=== PATIENT | female | born 1935 | race Caucasian/White ===

== ENCOUNTER 2021-06-30 10:11 | Inpatient (IN) ==
[2021-06-30] MEDS ORDERED: Aspirin 81 MG TAB.CHEW PO ONE (10:20)
[2021-06-30] MEDS: Nitroglycerin 0.4 MG TAB.SUBL SL PRN ×2 (10:34→11:04)
[2021-06-30] MEDS ORDERED: *HR* Heparin 5,000 UNIT/ML VIAL IVP PRN ×2 (10:46)
[2021-06-30] MEDS ORDERED: *HR* Ticagrelor 90 MG TABLET PO ONE (10:46)
[2021-06-30] MEDS ORDERED: *HR* Heparin 5,000 UNIT/ML VIAL IVP ONE (10:46)
[2021-06-30 10:57] LABS: Basophils % 0.3 %; Eosinophils % 0.1 %; Hematocrit 35.7 % (35.3-44.9); Hemoglobin 11.8 g/dL (11.5-15.4); Immature Granulocytes % 0.3 % (0-4); Lymphocytes # 1.5 K/mcL (0.6-4.6); Lymphocytes % 16.2 %; Mean Corpuscular HGB Conc 33.1 g/dL (31.6-35.5); Mean Corpuscular Hemoglobin 29.6 pg (28.0-33.3); Mean Corpuscular Volume 89.5 fL (83.0-100.0); Monocytes # 0.7 K/mcL (0.0-1.3); Monocytes % 7.8 %; Neutrophils # 6.9 K/mcL (1.6-8.9); Platelet Count 253 K/mcL (140-400); Red Blood Count 3.99 M/mcL (3.82-4.97); Red Cell Distribution Width 13.9 % (11.5-14.5); Segmented Neutrophils % 75.3 %; White Blood Count 9.2 K/mcL (4.3-11.1)
[2021-06-30] MEDS ORDERED: Heparin 25,000UNIT/250ML 1/2NS 25,000 UNIT/250 ML IV.SOLN IVC SCH (11:00)
[2021-06-30] MEDS ORDERED: ISOVUE-370 200 ML INFUS..BTL ONE (11:01)
[2021-06-30] MEDS ORDERED: Nitroglycerin 1,000 MCG/5 ML VIAL IV ONE (11:01)
[2021-06-30] MEDS ORDERED: Heparin 1,000 UNITS/500 mL 500 ML ONE (11:01)
[2021-06-30] MEDS ORDERED: 0.9 % Sodium Chloride 1,000 ML ONE (11:01)
[2021-06-30] MEDS ORDERED: *HR* Heparin 10,000 UNIT/10 ML VIAL ONE ×2 (11:01→11:07)
[2021-06-30 11:05] LABS: INR 1.1; Prothrombin Time 12.7 Seconds (9.4-12.1)
[2021-06-30 11:07] LABS: Activated Partial Thrombo Time 25.4 Seconds (26.0-36.0)
[2021-06-30 11:21] LABS: Alanine Aminotransferase 12 Units/L (7-52); Albumin 3.7 g/dL (3.5-5.7); Albumin/Globulin Ratio 1.2 (1.1-2.2); Alkaline Phosphatase 57 Units/L (34-104); Aspartate Amino Transferase 48 Units/L (13-39); BUN/Creatinine Ratio 15 (6-26); Bilirubin,Direct 0.1 mg/dL (0.0-0.2); Bilirubin,Indirect 0.5 mg/dL (0.0-1.0); Bilirubin,Total 0.6 mg/dL (0.3-1.0); Blood Urea Nitrogen 9 mg/dL (8-23); Calcium 9.1 mg/dL (8.6-10.3); Carbon Dioxide 28 mEq/L (23-29); Chloride 92 mEq/L (98-107); Glucose 115 mg/dL (70-105); Lipase 9 Units/L (11-82); Magnesium 1.6 mg/dL (1.6-2.6); Osmolality,Calculated 270 (280-300); Potassium 3.2 mEq/L (3.5-5.1); Sodium 130 mEq/L (136-145); Total Protein 6.7 g/dL (6.4-8.9); Troponin I 4.22 ng/mL (< 0.04); eGFR For African Americans > 60 (> 60); eGFR For Non-African Americans > 60 (> 60)
[2021-06-30] MEDS ORDERED: *HR* FentaNYL (PF) 100 MCG/2 ML VIAL ONE (12:31)
[2021-06-30] MEDS ORDERED: *HR* Midazolam HCl 2 MG/2 ML VIAL ONE (12:32)
[2021-06-30] MEDS: Acetaminophen 325 MG TABLET PO PRN (17:36)
[2021-06-30] MEDS: rOPINIRole 1 MG TABLET PO SCH (20:17)
[2021-06-30] MEDS: Gabapentin 300 MG CAPSULE PO SCH (20:17)
[2021-07-01] MEDS: *HR* HYDROcodone/Acet 5/325 mg TABLET PO PRN (01:55)
[2021-07-01 05:23] LABS: Hemoglobin 11.1 g/dL (11.5-15.4)
[2021-07-01 05:40] LABS: BUN/Creatinine Ratio 19 (6-26); Blood Urea Nitrogen 13 mg/dL (8-23); eGFR For African Americans > 60 (> 60); eGFR For Non-African Americans > 60 (> 60)
[2021-07-01] MEDS ORDERED: Perflutren Lipid Microsphere 1.3 ML in 0.9 % Sodium Chloride 8.7 ML IVP PRN (08:44)
[2021-07-01] MEDS: Aspirin Enteric Coated 81 MG Tablet PO SCH (09:27)
[2021-07-01] MEDS: Gabapentin 300 MG CAPSULE PO SCH ×4 (09:27→20:46)
[2021-07-01] MEDS ORDERED: *HR* Digoxin 0.5 MG/2 ML AMPUL IVP ONE (11:58)
[2021-07-01] MEDS: *HR* Enoxaparin 80 MG/0.8 ML SYRINGE SQ SCH ×2 (12:16→21:58)
[2021-07-01] MEDS ORDERED: Amiodarone Premix 150 MG/100 ML BAG IVPB ONE ×2 (14:43→20:15)
[2021-07-01] MEDS: Acetaminophen 325 MG TABLET PO PRN (14:46)
[2021-07-01] MEDS ORDERED: *HR* Metoprolol 5 MG/5 ML VIAL IVP ONE (16:52)
[2021-07-01] MEDS ORDERED: *HR* Digoxin 0.5 MG/2 ML AMPUL IVP SCH (18:00)
[2021-07-01] MEDS ORDERED: Amiodarone Premix 360 MG/200 ML BAG IVC ONE (20:30)
[2021-07-01] MEDS: carvediloL 6.25 MG TABLET PO SCH (20:46)
[2021-07-01] MEDS: rOPINIRole 1 MG TABLET PO SCH (21:58)
[2021-07-02 00:05] LABS: Bilirubin,Urine Negative (Negative); Blood,Urine Moderate (Negative); Clarity,Urine Clear (Clear); Color,Urine Light-Yellow (Yellow); Glucose,Urine (UA) Normal (Normal); Ketones,Urine Negative (Negative); Leukocyte Esterase,Urine Large (Negative); Mucus,Urine Few per lpf (None-Few); Nitrite,Urine Negative (Negative); PH,Urine 6.5 pH Units (5.0-8.0); Protein,Urine 50 mg/dL (Neg-Trace); RBC,Urine 50-100 per hpf (0-3); Specific Gravity,Urine 1.024 (1.010-1.025); Squamous Epithelial Cell,Urine Few per hpf (None-Few); WBC,Urine 50-100 per hpf (0-3)
[2021-07-02] MEDS ORDERED: Amiodarone Premix 360 MG/200 ML BAG IVC SCH (02:30)
[2021-07-02] MEDS: *HR* Enoxaparin 80 MG/0.8 ML SYRINGE SQ SCH (05:32)
[2021-07-02] MEDS ORDERED: Metoprolol XL (24 HR) Succ 25 MG TAB.ER.24H PO SCH (09:15)
[2021-07-02] MEDS: Gabapentin 300 MG CAPSULE PO SCH ×4 (09:21→19:36)
[2021-07-02] MEDS: Aspirin Enteric Coated 81 MG Tablet PO SCH (09:22)
[2021-07-02] MEDS ORDERED: Potassium Chloride Elixir 20 MEQ/15 ML UDC PO ONE (12:33)
[2021-07-02] MEDS ORDERED: Furosemide 20 MG/2 ML VIAL IVP ONE (12:42)
[2021-07-02] MEDS: Acetaminophen 325 MG TABLET PO PRN (16:50)
[2021-07-02] MEDS: Metoprolol XL (24 HR) Succ 25 MG TAB.ER.24H PO SCH (19:36)
[2021-07-02] MEDS: Apixaban 5 MG TABLET PO SCH (19:36)
[2021-07-02] MEDS: rOPINIRole 1 MG TABLET PO SCH (19:36)
[2021-07-03 05:29] LABS: Basophils % 0.3 %; Eosinophils # 0.1 K/mcL (0.0-0.6); Eosinophils % 0.8 %; Hematocrit 34.7 % (35.3-44.9); Hemoglobin 11.1 g/dL (11.5-15.4); Immature Granulocytes % 0.7 % (0-4); Lymphocytes # 1.8 K/mcL (0.6-4.6); Lymphocytes % 24.2 %; Mean Corpuscular Hemoglobin 29.1 pg (28.0-33.3); Mean Corpuscular Volume 91.1 fL (83.0-100.0); Monocytes # 0.9 K/mcL (0.0-1.3); Monocytes % 11.6 %; Neutrophils # 4.6 K/mcL (1.6-8.9); Platelet Count 227 K/mcL (140-400); Red Blood Count 3.81 M/mcL (3.82-4.97); Red Cell Distribution Width 14.6 % (11.5-14.5); Segmented Neutrophils % 62.4 %; White Blood Count 7.3 K/mcL (4.3-11.1)
[2021-07-03 05:44] LABS: BUN/Creatinine Ratio 30 (6-26); Blood Urea Nitrogen 19 mg/dL (8-23); Calcium 8.8 mg/dL (8.6-10.3); Carbon Dioxide 26 mEq/L (23-29); Chloride 100 mEq/L (98-107); Glucose 102 mg/dL (70-105); Osmolality,Calculated 280 (280-300); Potassium 3.6 mEq/L (3.5-5.1); Sodium 134 mEq/L (136-145); eGFR For African Americans > 60 (> 60); eGFR For Non-African Americans > 60 (> 60)
[2021-07-03] MEDS: *HR* HYDROcodone/Acet 5/325 mg TABLET PO PRN (06:10)
[2021-07-03] MEDS: Apixaban 5 MG TABLET PO SCH ×2 (07:19→19:43)
[2021-07-03] MEDS: Metoprolol XL (24 HR) Succ 25 MG TAB.ER.24H PO SCH ×2 (07:19→19:43)
[2021-07-03] MEDS: Gabapentin 300 MG CAPSULE PO SCH ×4 (07:19→19:43)
[2021-07-03] MEDS: rOPINIRole 1 MG TABLET PO SCH (19:43)
[2021-07-03] MEDS: Ondansetron 4 MG/2 ML VIAL IVP PRN (21:32)
[2021-07-04] MEDS: Apixaban 5 MG TABLET PO SCH ×2 (09:22→20:29)
[2021-07-04] MEDS: Ondansetron 4 MG/2 ML VIAL IVP PRN (09:22)
[2021-07-04] MEDS: Metoprolol XL (24 HR) Succ 25 MG TAB.ER.24H PO SCH ×2 (09:22→20:29)
[2021-07-04] MEDS: Gabapentin 300 MG CAPSULE PO SCH ×4 (09:22→20:27)
[2021-07-04] MEDS ORDERED: *HR* HYDROcodone/Acet 5/325 mg TABLET PO PRN (15:21)
[2021-07-04] MEDS ORDERED: Ondansetron 4 MG/2 ML VIAL IVP PRN (15:21)
[2021-07-04] MEDS ORDERED: Nitroglycerin 0.4 MG TAB.SUBL SL PRN (15:21)
[2021-07-04] MEDS: rOPINIRole 1 MG TABLET PO SCH (20:26)
[2021-07-04] MEDS: Acetaminophen 325 MG TABLET PO PRN (20:28)
[2021-07-05] MEDS: carvediloL 6.25 MG TABLET PO SCH (08:09)
[2021-07-05] MEDS: Gabapentin 300 MG CAPSULE PO SCH ×4 (09:56→21:33)
[2021-07-05] MEDS: Apixaban 5 MG TABLET PO SCH ×2 (09:56→21:33)
[2021-07-05] MEDS: Metoprolol XL (24 HR) Succ 25 MG TAB.ER.24H PO SCH ×2 (09:56→21:33)
[2021-07-05] MEDS: rOPINIRole 1 MG TABLET PO SCH (21:33)
[2021-07-05] MEDS: Acetaminophen 325 MG TABLET PO PRN (21:34)
[2021-07-06] MEDS: Gabapentin 300 MG CAPSULE PO SCH ×4 (08:08→20:01)
[2021-07-06] MEDS: Apixaban 5 MG TABLET PO SCH ×2 (08:09→20:01)
[2021-07-06] MEDS: Metoprolol XL (24 HR) Succ 25 MG TAB.ER.24H PO SCH ×2 (08:09→20:01)
[2021-07-06] MEDS: Acetaminophen 325 MG TABLET PO PRN (13:25)
[2021-07-06] MEDS: rOPINIRole 1 MG TABLET PO SCH (20:01)
[2021-07-07 07:12] VITALS: TEMP 97.8
[2021-07-07] MEDS: Metoprolol XL (24 HR) Succ 25 MG TAB.ER.24H PO SCH (08:38)
[2021-07-07] MEDS: Gabapentin 300 MG CAPSULE PO SCH ×2 (08:39→11:24)
[2021-07-07] MEDS: Apixaban 5 MG TABLET PO SCH (08:39)
[2021-07-07 10:41] VITALS: BP 103/65; PULSE 77; O2SAT 95
[2021-07-07] MEDS: Acetaminophen 325 MG TABLET PO PRN (12:51)
== END 2021-07-07 16:09 | DRG 247 ==
LOC: EMEROOARM 10:11 → 3BNU 10:11 → 2NNU 07-01 20:02 → 3BNU 07-05 21:05
PROVIDERS: ADMIT Internal Medicine Cardiovascular Disease; ATTEND Internal Medicine Cardiovascular Disease

== ENCOUNTER 2021-12-28 13:40 | Observation (INO) ==
[2021-12-28] MEDS ORDERED: Acetaminophen 325 MG TABLET PO PRN (19:55)
[2021-12-28] MEDS ORDERED: Naloxone 0.4 MG/ML INJ IVP PRN (19:55)
[2021-12-28] MEDS ORDERED: Melatonin 3 MG TABLET PO PRN (19:55)
[2021-12-28] MEDS ORDERED: Ondansetron ODT 4 MG TAB.RAPDIS SL PRN (19:55)
[2021-12-28] MEDS ORDERED: *HR* OxyCODONE Immed Rel 5 MG TABLET PO PRN (19:55)
[2021-12-28] MEDS ORDERED: Perflutren Lipid Microsphere 1.3 ML in 0.9 % Sodium Chloride 8.7 ML IVP PRN (19:59)
[2021-12-28] MEDS ORDERED: DilTIAZem 50 MG/50 ML IV.SOLN IVC SCH (20:15)
[2021-12-28] MEDS ORDERED: Metoprolol XL (24 HR) Succ 25 MG TAB.ER.24H PO SCH (21:00)
[2021-12-28] MEDS: Apixaban 5 MG TABLET PO SCH (21:04)
[2021-12-28] MEDS: rOPINIRole 1 MG TABLET PO SCH (21:04)
[2021-12-28] MEDS: Gabapentin 300 MG CAPSULE PO SCH (23:14)
[2021-12-29] MEDS: Metoprolol XL (24 HR) Succ 25 MG TAB.ER.24H PO SCH ×3 (00:02→21:29)
[2021-12-29 02:29] LABS: Basophils % 0.3 %; Eosinophils % 0.4 %; Hematocrit 31.4 % (35.3-44.9); Immature Granulocytes % 0.4 % (0-4); Lymphocytes # 1.7 K/mcL (0.6-4.6); Lymphocytes % 24.9 %; Mean Corpuscular HGB Conc 31.8 g/dL (31.6-35.5); Mean Corpuscular Hemoglobin 26.3 pg (28.0-33.3); Mean Corpuscular Volume 82.6 fL (83.0-100.0); Mean Platelet Volume 9.5 fL (9.4-12.4); Monocytes # 0.8 K/mcL (0.0-1.3); Monocytes % 11.9 %; Neutrophils # 4.3 K/mcL (1.6-8.9); Platelet Count 261 K/mcL (140-400); Red Cell Distribution Width 16.9 % (11.5-14.5); Segmented Neutrophils % 62.1 %
[2021-12-29 02:36] LABS: Alanine Aminotransferase 8 Units/L (7-52); Albumin 3.6 g/dL (3.5-5.7); Albumin/Globulin Ratio 1.4 (1.1-2.2); Alkaline Phosphatase 59 Units/L (34-104); Aspartate Amino Transferase 12 Units/L (13-39); BUN/Creatinine Ratio 24 (6-26); Bilirubin,Total 0.4 mg/dL (0.3-1.0); Blood Urea Nitrogen 16 mg/dL (8-23); Calcium 9.4 mg/dL (8.6-10.3); Carbon Dioxide 25 mEq/L (23-29); Chloride 99 mEq/L (98-107); Cholesterol 243 mg/dL (< 200); Globulin 2.6 g/dL (2.4-3.5); Glucose 109 mg/dL (70-105); Magnesium 1.7 mg/dL (1.6-2.6); Osmolality,Calculated 282 (280-300); Phosphorous 3.6 mg/dL (2.7-4.5); Potassium 3.5 mEq/L (3.5-5.1); Sodium 135 mEq/L (136-145); Total Protein 6.2 g/dL (6.4-8.9); Triglycerides 225 mg/dL (< 150); eGFR For African Americans > 60 (> 60); eGFR For Non-African Americans > 60 (> 60)
[2021-12-29 02:48] LABS: Thyroid Stimulating Hormone 4.502 mcIU/mL (0.340-5.600)
[2021-12-29 02:49] LABS: HDL Cholesterol 49 mg/dL (40-59); LDL Cholesterol,Calculated 149 mg/dL (< 100)
[2021-12-29 03:11] LABS: Estimated Average Glucose 137 mg/dl; Hemoglobin A1C 6.4 %
[2021-12-29] MEDS: *HR* HYDROcodone/Acet 5/325 mg TABLET PO PRN ×2 (03:28→19:05)
[2021-12-29] MEDS ORDERED: Aspirin 81 MG TAB.CHEW PO SCH (09:00)
[2021-12-29] MEDS: Apixaban 5 MG TABLET PO SCH (09:57)
[2021-12-29] MEDS: rOPINIRole 1 MG TABLET PO SCH ×2 (13:01→21:29)
[2021-12-29] MEDS: *HR* Amiodarone 200 MG TABLET PO SCH (13:01)
[2021-12-29] MEDS: Gabapentin 300 MG CAPSULE PO SCH (21:29)
[2021-12-29] MEDS: Apixaban 2.5 MG TABLET PO SCH (21:29)
[2021-12-30 07:25] LABS: Basophils % 0.6 %; Eosinophils # 0.1 K/mcL (0.0-0.6); Eosinophils % 1.3 %; Hematocrit 33.4 % (35.3-44.9); Hemoglobin 10.5 g/dL (11.5-15.4); Immature Granulocytes % 0.4 % (0-4); Lymphocytes # 1.6 K/mcL (0.6-4.6); Lymphocytes % 28.6 %; Mean Corpuscular HGB Conc 31.4 g/dL (31.6-35.5); Mean Corpuscular Hemoglobin 26.3 pg (28.0-33.3); Mean Corpuscular Volume 83.5 fL (83.0-100.0); Monocytes # 0.6 K/mcL (0.0-1.3); Monocytes % 10.3 %; Neutrophils # 3.2 K/mcL (1.6-8.9); Platelet Count 273 K/mcL (140-400); Red Cell Distribution Width 17.1 % (11.5-14.5); Segmented Neutrophils % 58.8 %; White Blood Count 5.5 K/mcL (4.3-11.1)
[2021-12-30 08:14] LABS: BUN/Creatinine Ratio 26 (6-26); Blood Urea Nitrogen 20 mg/dL (8-23); Carbon Dioxide 29 mEq/L (23-29); Chloride 99 mEq/L (98-107); Glucose 95 mg/dL (70-105); Magnesium 1.9 mg/dL (1.6-2.6); Osmolality,Calculated 284 (280-300); Potassium 4.2 mEq/L (3.5-5.1); Sodium 136 mEq/L (136-145); eGFR For African Americans > 60 (> 60); eGFR For Non-African Americans > 60 (> 60)
[2021-12-30] MEDS ORDERED: Cholecalciferol (D-3) 1,000 UNIT (25MCG) TABLET PO SCH (09:00)
[2021-12-30] MEDS ORDERED: Multivit/Ca/Min/Fe/FA 1 TAB TABLET PO SCH (09:00)
[2021-12-30] MEDS ORDERED: Pyridoxine (B-6) 50 MG TABLET PO SCH (09:00)
[2021-12-30] MEDS ORDERED: Cyanocobalamin (B-12) 1,000 MCG TABLET PO SCH (09:00)
[2021-12-30] MEDS ORDERED: hydroCHLOROthiazide 25 MG TABLET PO SCH (09:00)
[2021-12-30] MEDS ORDERED: Ascorbic Acid 500 MG TABLET PO SCH (09:00)
[2021-12-30] MEDS: Metoprolol XL (24 HR) Succ 25 MG TAB.ER.24H PO SCH (09:07)
[2021-12-30] MEDS: Apixaban 2.5 MG TABLET PO SCH (09:08)
[2021-12-30] MEDS: *HR* Amiodarone 200 MG TABLET PO SCH (09:08)
[2021-12-30 11:19] VITALS: BP 153/77; PULSE 77; TEMP 98.5; O2SAT 98
[2021-12-30] MEDS: rOPINIRole 1 MG TABLET PO SCH (12:25)
== END 2021-12-30 14:35 | disposition home or self-care (01) ==
LOC: 2ANU → SUATTDRO 19:29
PROVIDERS: ADMIT Internal Medicine; ATTEND Family Medicine

== ENCOUNTER 2022-03-04 09:24 | Observation (INO) ==
[2022-03-04] MEDS ORDERED: 0.9 % Sodium Chloride 1,000 ML ONE ×2 (09:52→10:40)
[2022-03-04] MEDS ORDERED: *HR* Midazolam HCl 2 MG/2 ML VIAL ONE (10:39)
[2022-03-04] MEDS ORDERED: *HR* FentaNYL (PF) 100 MCG/2 ML VIAL ONE (10:39)
[2022-03-04] MEDS ORDERED: Iopamidol - 370 200 ML INFUS..BTL ONE (10:40)
[2022-03-04] MEDS ORDERED: Heparin 1,000 UNITS/500 mL 500 ML ONE (10:40)
[2022-03-04] MEDS ORDERED: *HR* Heparin 10,000 UNIT/10 ML VIAL ONE (10:40)
[2022-03-04] MEDS ORDERED: Nitroglycerin 1,000 MCG/5 ML VIAL IV ONE (10:40)
[2022-03-04] MEDS ORDERED: Nitroglycerin 0.4 MG TAB.SUBL SL PRN (11:34)
[2022-03-04] MEDS ORDERED: Furosemide 40 MG/4 ML VIAL IVP ONE (14:05)
[2022-03-04] MEDS: rOPINIRole 1 MG TABLET PO SCH ×2 (15:45→21:18)
[2022-03-04] MEDS ORDERED: Gabapentin 300 MG CAPSULE PO SCH (21:00)
[2022-03-04] MEDS: Metoprolol XL (24 HR) Succ 25 MG TAB.ER.24H PO SCH (21:18)
[2022-03-04] MEDS: Apixaban 2.5 MG TABLET PO SCH (21:18)
[2022-03-04] MEDS: *HR* HYDROcodone/Acet 5/325 mg TABLET PO PRN (21:19)
[2022-03-05 01:46] LABS: Hematocrit 31.4 % (35.3-44.9); Hemoglobin 10.2 g/dL (11.5-15.4)
[2022-03-05] MEDS: Metoprolol XL (24 HR) Succ 25 MG TAB.ER.24H PO SCH (08:39)
[2022-03-05] MEDS: Apixaban 2.5 MG TABLET PO SCH (08:41)
[2022-03-05] MEDS ORDERED: *HR* Amiodarone 200 MG TABLET PO SCH (09:00)
[2022-03-05] MEDS ORDERED: Gabapentin 300 MG CAPSULE PO SCH (09:00)
[2022-03-05 10:39] VITALS: BP 105/62; PULSE 65; TEMP 97.9; O2SAT 95
[2022-03-05] MEDS: rOPINIRole 1 MG TABLET PO SCH (11:44)
[2022-03-05] MEDS: *HR* HYDROcodone/Acet 5/325 mg TABLET PO PRN (12:59)
== END 2022-03-05 15:14 | disposition home or self-care (01) ==
LOC: 3BNU 09:24 → INVDIALAB 09:24 → 3BNU 14:02
PROVIDERS: ADMIT Internal Medicine; ATTEND Internal Medicine